=== PATIENT | female | born 1940 | race Caucasian/White ===

== ENCOUNTER 2020-04-06 12:06 | Emergency (ER) | payer OTHER ==
[~2020-04-06] VITALS: Ht 170.2 cm; Wt 68.0 kg
[2020-04-06 12:47] LABS: ABSOLUTE NEUTROPHILS 6.3 thou/uL (1.4-8.2); BASOPHILS 0.7 % (0.0-2.0); EOSINOPHILS 1.1 % (0.0-3.0); HEMATOCRIT 40.1 % (37.0-47.0); HEMOGLOBIN 13.4 gm/dL (12.0-15.0); LYMPHOCYTES 18.8 % (24.0-44.0); MCH 29.3 pg (26.0-34.0); MCHC 33.5 g/dL (28.0-37.0); MCV 87.5 fL (80.0-100.0); MONOCYTES 7.3 % (1.0-8.0); PLATELET COUNT 205 thou/uL (150-400); POLYS 72.1 % (36.0-66.0); RBC 4.58 mil/uL (4.20-5.00); RDW 12.6 % (10.5-14.5); WBC 8.7 thou/uL (4.0-11.0)
[2020-04-06 12:59] LABS: ANION GAP 15 mmol/L (7-16); BUN 26 mg/dL (7-18); CALCIUM 9.5 mg/dL (8.5-10.1); CHLORIDE 103 mmol/L (98-107); CO2 23 mmol/L (21-32); CREATININE 1.1 mg/dL (0.6-1.0); GLUCOSE 131 mg/dL (74-106); POTASSIUM 3.8 mmol/L (3.5-5.1); SODIUM 141 mmol/L (136-145)
[2020-04-06 13:02] LABS: ALBUMIN 3.9 g/dL (3.4-5.0); DIRECT BILIRUBIN < 0.1 mg/dL (<0.1-0.2); LIPASE 64 U/L (73-393); SGOT 17 U/L (15-37); SGPT 18 U/L (30-65); TOTAL BILIRUBIN 0.4 mg/dL (0.2-1.0); TOTAL PROTEIN 7.6 g/dL (6.4-8.2)
[2020-04-06 13:04] LABS: APTT 28.2 Seconds (24.5-32.8); INR 1.1; PROTIME 10.8 Seconds (9.3-11.4)
--- NOTE | 2020-04-06 13:09 | EKG ---
[facility] [place] [address] [place] [address] ELECTROCARDIOGRAM REPORT Name: SD MCGOWAN Room #: PRE [facility]..#: [id number] Admission: Attend Phys: Discharge: Date of : 38 Report #: [id number] THIS REPORT FOR: cc: Ck Birmingham MD [facility] ~ THIS REPORT FOR: //name// [facility] ED Test Date: 2020-04-06 Test Time: 12:53:27 Pat Name: SD MCGOWAN Department: Room: Gender: F [employer] Start: : 1940 Requested By: Justo Padilla Order Number: [id number] MD: Ck Birmingham Measurements Intervals English Rate: 64 P: 60 IL: 201 QRS: -67 QRSD: 155 T: 74 QT: 457 QTc: 472 Interpretive Statements Sinus rhythm Nonspecific IVCD with LAD Probable left ventricular hypertrophy Anterior Q waves, possibly due to LVH Baseline wander in lead(s) II,III,aVF No previous ECG available for comparison Electronically Signed On 04-06-2020 13:09:22 CDT by Ck Birmingham [email or web address] <ELECTRONICALLY SIGNED> By: Ck Birmingham MD, FACC 04/06/20 1309 1253 1253 Ck Birmingham MD, FAC /EPI
[2020-04-06] MEDS ORDERED: AUGMENTIN 875-1 EACH PO (14:05)
[2020-04-06] MEDS ORDERED: ULTRAM 50MG TAB50 MG PO (14:05)
[2020-04-06 14:16] VITALS: BP 134/74
== END 2020-04-06 14:16 | disposition home or self-care (01) ==
LOC: ER 12:06
PROVIDERS: Nurse Practitioner
DX: K57.32 Diverticulitis of large intestine without perforation or abscess without bleeding (principal); Z88.8 Allergy status to other drugs, medicaments and biological substances; Z88.5 Allergy status to narcotic agent

== ENCOUNTER → 2020-12-16 | Outpatient (CLI) | payer OTHER ==
[~2020-12-16] VITALS: Ht 170.2 cm; Wt 77.1 kg
[~2020-12-16] MED LIST: AUGMENTIN 875-1 EACH PO; CARVEDILOL25 MG PO; COZAAR 25 MG TA25 M1 PO; DIAZEPAM 10 MG10 M2 PO; FUROSEMIDE 40 M40 M1 PO; HYDROXYZINE HCL25 M2 PO; LIPITOR 40 MG T40 M1 PO; REMERON 30 MG T30 M1 PO; SERTRALINE HCL100 MG PO; SPIRONOLACTONE25 MG PO; ULTRAM 50MG TAB50 MG PO
--- NOTE | 2020-12-18 18:06 | PATH ---
[facility] [place] [address] [place] [address] PATHOLOGY RPT PROCEDURE Name: ALEJA MCGOWANAILEEN BEEBE Room #: REG MILAGROShai Marie.#: [id number] Admission: 12/16/20 Date of : 38 Discharge: Report #: [id number] Path Case #: [id number] [facility] Accession Number: [id number] . 01 Material submitted: . PART A: duodenum - DUODENAL BX R/O SPRUE PART B: gastrointestinal site - GASTRIC BX R/O H PYLORI PART C: colon - RANDOM COLON BIOPSY R/O MICROSCOPIC COLITIS PART D: rectum - RECTAL POLYP . 01 Clinician provided ICD-10: [id number] . 01 Clinical history: . EGD COLONOSCOPY ANEMIA, DIARRHEA, ABD PAIN GASTRITIS WITH GASTRIC ULCERS, LARGE HIATAL HERNIA SCHATZKI'S RING, DIVERTICULOSIS, RECTAL POLYP . 02 Diagnosis: A. Small bowel mucosa, duodenum R/O sprue, endoscopic biopsy: - No significant diagnostic abnormalities identified. - Negative for villous blunting or increase in intraepithelial lymphocytes. . B. Gastric mucosa, gastric R/O H. pylori, endoscopic biopsy: - Mild reactive gastropathy. - Negative for intestinal metaplasia or atrophy. - Negative for Helicobacter pylori (properly controlled immunohistochemical stain performed). . C. Large intestinal mucosa, random colon R/O microscopic colitis, endoscopic biopsy: - Mild active colitis, see comment. - Negative for dysplasia or malignancy. . D. Polyp, rectal polyp, endoscopic biopsy: - Tubular adenoma. - Negative for high-grade dysplasia. (IUV:se; 12/18/2020) S 12/18/2020 1331 Local . 02 Comment: Sections of the colonic mucosa designated "random colon" show focal cryptitis, and a moderately cellular lamina propria composed predominantly of lymphocytes and plasma cells and occasional eosinophils. Surface [address] [address] PATHOLOGY RPT PROCEDURE Name: SD MCGOWAN Room #: REG CLI [facility].#: [id number] Admission: 12/16/20 Date of : 38 Discharge: Report #: [id number] Path Case #: [id number] ulceration is not identified. There are no crypt abscesses, granulomas or viral inclusions. The process affects all the fragments with a similar intensity. Given the description, the differential diagnosis includes focal mild active colitis of self-limited etiology, infectious-type of etiology, acute diverticulitis, medication/drug induced colitis or early inflammatory bowel disease. Please correlate with clinical as well as endoscopic findings. (IUV:lillian; 12/18/2020) . 02 Electronically signed: . Inga Zarate MD, Pathologist NPI- [id number] . 01 Gross description: . A. The specimen is received in formalin, labeled "Bucky, Sd, duodenal biopsy rule out sprue" received as multiple fragments of soft nicholas tissue measuring up to 0.4 cm. Entirely submitted in A1. . B. The specimen is received in formalin, labeled "Bucky, Sd, gastric biopsy rule out H. pylori" received as multiple fragments of soft nicholas tissue measuring up to 0.4 cm. Entirely submitted in B1. . C. The specimen is received in formalin, labeled "Bucky, Sd, random colon biopsy rule out microscopic colitis" received as multiple fragments of soft nicholas tissue measuring up to 0.3 cm. Entirely submitted in C1. . D. The specimen is received in formalin, labeled "Bucky, Sd, rectal polyp" received as one fragment of soft nicholas tissue measuring up to 0.2 cm. Entirely submitted in D1. ([facility]; 12/17/2020) . LALA/LALA 12/18/2020 1327 Local . 02 Pathologist provided ICD-10: K31.9, K52.9, D12.8 . 02 CPT . 616162, 006231, 678658, 526973, [id number] Specimen Comment: A courtesy copy of this report has been sent to [phone] Specimen Comment: [phone] Specimen Comment: Report sent to / DR TAYLOR Performed at: 01 [facility] [address], [place] [address] MD Deng Hays MD Phone: [phone] Performed at: [facility] [address] [place] [address] PATHOLOGY RPT PROCEDURE Name: SD MCGOWAN Room #: REG CL MColeR.#: [id number] Admission: 12/16/20 Date of : 38 Discharge: Report #: [id number] Path Case #: [id number] [address] [place], [place] [id number] MD Inga Zarate MD Phone: [phone]
--- NOTE | 2020-12-21 15:04 | P ---
[facility] [place] [address] [address] [place] [address] PROCEDURE REPORT Name: SD MCGOWAN CONCEPCIÓN Room #: REG [facility].#: [id number] Admission: 12/16/20 Attend Phys: Pino Sexton Discharge: Date of : 39 Report #: [id number] THIS REPORT FOR: cc: Karyn Vo MD, Laurie Dawn MD McElhinney, Christian C. MD ~ DOC #: [id number] cc: MD Pino Monroe MD DATE OF SERVICE: 12/16/2020 PROCEDURE PERFORMED: Colonoscopy with biopsies. HISTORY OF PRESENT ILLNESS: The patient is an 80-year-old female with a history of chronic diarrhea, intermittent crampy abdominal pain, patient with a history of anemia seen in the office recently started on Levsin, which has been somewhat helpful. She does report bright red blood per rectum at times. Last colonoscopy approximately 5 years ago. No family history of colon cancer. On a bad day, is average in 5-10 bowel movements per day. She also has a previous history of diverticulitis, treated with antibiotics in March. Plan is for colonoscopy. DESCRIPTION OF PROCEDURE: The risks and benefits of the procedure were explained to the patient, those risks including but not limited to bleeding, perforation and the risk of sedation. She understood these risks and gave informed consent. Sedation was given using propofol per anesthesia. Next, a digital rectal exam showed external hemorrhoids, otherwise normal. Next, using a standard Olympus colonoscope, the scope was placed in the patient's anus and advanced under direct vision to the cecum. The overall prep was excellent. The cecum and ileocecal valve were normal in appearance. Terminal ileum was then intubated and normal in appearance. The ascending, transverse, and descending colon were normal. Random biopsies were obtained today to rule out the possibility of microscopic colitis. Multiple small diverticula were noted in the sigmoid colon. No evidence of inflammation, otherwise normal. In the rectum, there was a single 3 mm sessile polyp. This was removed with cold forceps, otherwise normal. No evidence of colitis on exam today. On retroflexion, small internal hemorrhoids were noted. Close examination of the anal canal showed small to medium sized external hemorrhoids. No evidence of bleeding at this time. No evidence of anal fissure. The scope was then withdrawn and the procedure terminated. The patient tolerated the procedure well. IMPRESSION: 1. Small rectal polyp. 2. Sigmoid diverticulosis without inflammation. [address] [address] PROCEDURE REPORT Name: SD MCGOWAN Room #: REG [facility].#: [id number] Admission: 12/16/20 Attend Phys: Pino Sexton Discharge: Date of : 38 Report #: [id number] 3. Internal and external hemorrhoids. 4. Otherwise, normal colonoscopy. RECOMMENDATIONS: 1. Await biopsy results. 2. Continue Levsin on a p.r.n. basis. 3. Recent bright red blood per rectum, likely secondary to external hemorrhoids. We will write a script for Analpram to be used on a p.r.n. basis. Thank you for allowing me to participate in her care. Pino Schneider MD [facility] <ELECTRONICALLY SIGNED> By: Pino Schneider MD 12/21/20 1504 0931 1948 Pino Schneider MD /nt
--- NOTE | 2020-12-21 15:04 | P ---
[facility] [place] [address] [address] PROCEDURE REPORT Name: SD MCGOWAN CONCEPCIÓN Room #: REG [facility].#: [id number] Admission: 12/16/20 Attend Phys: Pino Sexton Discharge: Date of : 38 Report #: [id number] THIS REPORT FOR: cc: Karyn Vo MD, Laurie Dawn MD McElhinney, Christian C. MD ~ DOC #: [id number] cc: MD Pino Monroe MD DATE OF SERVICE: 12/16/2020 PROCEDURE PERFORMED: Upper endoscopy with biopsies and esophageal dilation. HISTORY OF PRESENT ILLNESS: The patient is an 80-year-old female with a history of dysphagia also changes in her voice. She has dysphagia to both solids and liquids. No previous history of upper endoscopy apparently. She denies any acid reflux symptoms. She is not on any antacids. Her weight has been stable. She denies any nausea or vomiting. She also has a history of anemia and has undergone iron infusions recently. She also has been complaining of chronic diarrhea, blood in her stools and significant intermittent abdominal pain. Plan is for EGD and colonoscopy today. DESCRIPTION OF PROCEDURE: The risks and benefits of the procedure were explained to the patient, those risks including but not limited to bleeding, perforation and the risk of sedation. She understood these risks and gave informed consent. Sedation was given using propofol and fentanyl per anesthesia. Next, using a standard Olympus upper endoscope, the scope was placed in the patient's mouth and advanced under direct vision through the esophagus, stomach and into the second portion of the duodenum. The larynx was normal in appearance. The upper esophagus was normal. The mid and distal esophagus was tortuous, but otherwise normal. There was a mild Schatzki's ring noted at the GE junction. No evidence of esophagitis. Upon entering the stomach, a large hiatal hernia was noted. There was a diffuse gastritis noted throughout the body and antrum with several small clean white based ulcers ranging in size from 3-5 mm. There is no evidence of bleeding. Biopsies were obtained to rule out H. pylori. The pylorus was normal and patent. The duodenal bulb, first and second portion were normal. Random biopsies were also obtained to rule out the possibility of celiac sprue. The scope was then brought back up into the patient's stomach and a Savary guidewire was inserted through the scope, leaving the guidewire in place as the scope was then withdrawn. Next, a 51-Bruneian Savary dilation of the esophagus was performed without difficulty. The wire and dilator were removed. The scope was reintroduced into the patient's stomach. There was no evidence of mucosal tear after dilation. The scope was then withdrawn and the procedure terminated. The patient tolerated the procedure well. [address] [address] PROCEDURE REPORT Name: SD MCGOWAN Room #: REG [facility]#: [id number] Admission: 12/16/20 Attend Phys: Pino Sexton Discharge: Date of : 38 Report #: [id number] IMPRESSION: 1. Tortuous esophagus due to large hiatal hernia. 2. Mild Schatzki's ring, status post dilation. 3. Large hiatal hernia. 4. Diffuse moderate gastritis with several gastric ulcers. No evidence of active bleeding. 5. Otherwise, normal upper endoscopy. RECOMMENDATIONS: 1. Await biopsy results. 2. Recommend daily PPI therapy. 3. Observe the patient post-dilation. 4. We will proceed with colonoscopy next today. Thank you for allowing me to participate in her care. Pino Schneider MD CCM/SAT <ELECTRONICALLY SIGNED> By: Pino Schneider MD 12/21/20 1504 0858 1908 Pino Schneider MD /nt
== END | disposition home or self-care (01) ==
LOC: GI 08:08
PROVIDERS: ATTEND Specialist
DX: K52.9 Noninfective gastroenteritis and colitis, unspecified (principal); D12.8 Benign neoplasm of rectum; K57.30 Diverticulosis of large intestine without perforation or abscess without bleeding; K64.8 Other hemorrhoids; K64.4 Residual hemorrhoidal skin tags; K31.9 Disease of stomach and duodenum, unspecified; I10 Essential (primary) hypertension; R10.9 Unspecified abdominal pain; E78.5 Hyperlipidemia, unspecified; G43.909 Migraine, unspecified, not intractable, without status migrainosus; Z98.890 Other specified postprocedural states; Z79.899 Other long term (current) drug therapy; Z90.710 Acquired absence of both cervix and uterus; Z90.49 Acquired absence of other specified parts of digestive tract
CPT/HCPCS: 62110; 62900

== ENCOUNTER 2020-12-20 10:31 | Inpatient (IN) | payer OTHER ==
[~2020-12-20] VITALS: Ht 170.2 cm; Wt 78.0 kg
[2020-12-20 10:47] VITALS: BP 127/72
--- NOTE | 2020-12-20 11:32 | NUR ---
PT' SHIRT CUT OFF AT HER REQUEST.
[2020-12-20 11:56] LABS: ABSOLUTE NEUTROPHILS 3.7 thou/uL (1.4-8.2); BASOPHILS 0.6 % (0.0-2.0); HEMATOCRIT 30.6 % (37.0-47.0); HEMOGLOBIN 9.4 gm/dL (12.0-15.0); LYMPHOCYTES 28.2 % (24.0-44.0); MCHC 30.8 g/dL (28.0-37.0); MCV 71.5 fL (80.0-100.0); MONOCYTES 9.1 % (1.0-8.0); PLATELET COUNT 220 thou/uL (150-400); POLYS 61.1 % (36.0-66.0); RBC 4.28 mil/uL (4.20-5.00); RDW 17.8 % (10.5-14.5); WBC 6.1 thou/uL (4.0-11.0)
[2020-12-20 12:08] LABS: CALCIUM 9.2 mg/dL (8.5-10.1); CREATININE 1.1 mg/dL (0.6-1.0); POTASSIUM 3.6 mmol/L (3.5-5.1)
[2020-12-20 12:11] LABS: ALBUMIN 3.4 g/dL (3.4-5.0); TOTAL BILIRUBIN 0.2 mg/dL (0.2-1.0); TOTAL PROTEIN 7.3 g/dL (6.4-8.2)
[2020-12-20 12:41] VITALS: BP 127/72
[2020-12-20 13:01] VITALS: BP 129/74
[2020-12-20 13:20] VITALS: BP 136/63
[2020-12-20 13:51] LABS: ANISOCYTOSIS 1+; HYPOCHROMASIA 2+; MICROCYTES 1+; POLYCHROMASIA 1+
--- NOTE | 2020-12-20 15:38 | NUR ---
Pt transferred to unit from ED approx 1330. Pt c/o pain. Prn pain meds administered. Picture of rt upper extremity taken and placed in chart. Admission completed. Pt c/o itching. Provider notified and new orders noted. Family at bedside. Call light within reach. Fall precautions in place. Will continue to monitor.
[2020-12-20 19:15] VITALS: BP 91/36
--- NOTE | 2020-12-21 02:25 | NUR ---
ALERT AND ORIENTED. NORCO GIVEN FOR R HAND PAIN WITH RELIEF. LOW GRADE FEVER OF 99.5 WOUND DRSG DONE TO RFA. PT DENIES ANY GI/ DISCOMFORT. APPEARS TO BE SLEEPING WELL.
[2020-12-21 03:55] VITALS: BP 135/54
[2020-12-21 05:15] LABS: HEMATOCRIT 27.3 % (37.0-47.0); HEMOGLOBIN 8.7 gm/dL (12.0-15.0); MCHC 31.8 g/dL (28.0-37.0); MCV 72.2 fL (80.0-100.0); RBC 3.77 mil/uL (4.20-5.00); RDW 17.7 % (10.5-14.5); WBC 4.6 thou/uL (4.0-11.0)
[2020-12-21 05:34] LABS: CALCIUM 8.2 mg/dL (8.5-10.1); POTASSIUM 3.7 mmol/L (3.5-5.1)
[2020-12-21 08:11] VITALS: BP 111/47
--- NOTE | 2020-12-21 10:48 | NUR ---
Assumed care of pt at 0700. Pt a&ox4. C/o h/a and pain in right upper extremity. Prn pain meds administered. Dressing changed. Antibiotics infusing. Pt worked with physical and occupational therapy. Call light within reach. Fall precautions in place. Will continue to monitor.
--- NOTE | 2020-12-21 12:57 | NUR ---
ASSESSMENT: CM REVIEWED CHART AND SPOKE WITH PATIENT AT THE BEDSIDE. PT IS ALERT AND ORIENTED X4. PT WAS ADMITTED FROM HOME WHERE SHE LIVES IN A HOUSE WITH HER DAUGHTER. PT REPORTS HAVING ALOT OF STEPS AT THE HOME STATING ABOUT 12 UP WITH HANDRAILS AND 12 DOWN. PT REPORTS THAT HE IS NORMALLY FULLY INDEPENDENT WITH ADLS AND AMBULATION. PT REPORTS HAVING A CANE AND WALKER BUT NORMALLY DOES NOT USE THEM. PT REPORTS SHE HAS NOT HAD HOME HEALTH IN THE PAST OR BEEN TO A SNF. PT DID WELL WITH THERAPY AND PT SHOULD BE ABLE TO DISCHARGE HOME. PT WAS ADMITTED DUE CELLULITIS OF THE RIGHT LIMB. REMAINS ON IX ANBX AND CULTURES PENDING. CM WILL CONTINUE TO FOLLOW TO ASSIST NEEDED.
--- NOTE | 2020-12-21 16:23 | NUR ---
Assumed care at 1300 from SHARRI Beyer. Received awake on bed. Due medications given as prescribed, able to swallow meds w/o difficulty. On room air. Vital signs stable. On MS, not on telemetry; no complains and signs of chest pain, crushing sensation and heaviness. Assisted in ADLs. On regular diet- tolerating well; no nausea, no vomiting and no abdominal pain noted. Continent of bowel and bladder, able to go to the toilet with standby assist, gait belt. With laceration at R arm- dressing changed today as per previous nurse; C/D/I. Complained of pain, due PRN pain meds given as prescribed. With SL at L AC- on IV antibiotics. No fever noted this shift. To continue monitoring patient.
[2020-12-21 18:09] VITALS: BP 120/37
[2020-12-21 21:19] VITALS: BP 134/44
--- NOTE | 2020-12-22 00:37 | NUR ---
UPON SHIFT ASSESSMENT, PT AOX4. PT REPORTS 4/10 PAIN IN RIGHT ARM. PT RECEIVING PRN PO NORCO Q4HR WITH PRN PO APAP Q4HR AVAILABLE. DRESSING TO RIGHT FOREARM CLEAN, DRY AND INTACT, PT REQUESTING CHANGE OF KERLIX. PT DENIES SOB AT REST, NOTED TO HAVE SOB WITH EXERTION, ON ROOM AIR WHILE AWAKE, ON 2L O2 VIA NC AT HS. PT TOLERATING PO INTAKE OF FLUIDS AND REGULAR DIET WITHOUT ISSUE. PT WITHOUT NAUSEA OR EMESIS. PT AMBULATING WITH STANDBY TO X1 ASSIST TO BATHROOM, RESTING IN BED OTHERWISE. PT NOTED TO SHIFT INDEPENDENTLY WHILE IN BED. SENSATION INTACT, CAPILLARY REFILL LESS THAN 3SEC, PERIPHERAL PULSES PALPABLE IN ALL EXTREMITIES. PT ENCOURAGED TO NOTIFY STAFF FOR ALL NEEDS, CALL LIGHT WITHIN REACH, BED ALARM ON, BED LOCKED IN LOWEST POSITION, ROOM REMAINS NEAR NURSES STATION, FREQUENT MONITORING WILL CONTINUE.
[2020-12-22 04:03] VITALS: BP 140/51
[2020-12-22 06:05] LABS: HEMATOCRIT 26.2 % (37.0-47.0); HEMOGLOBIN 8.2 gm/dL (12.0-15.0); MCH 22.2 pg (26.0-34.0); MCHC 31.2 g/dL (28.0-37.0); MCV 71.3 fL (80.0-100.0); RBC 3.68 mil/uL (4.20-5.00); RDW 17.9 % (10.5-14.5); WBC 3.8 thou/uL (4.0-11.0)
[2020-12-22 06:09] LABS: % SATURATION 6 % (20-39); IRON 15 ug/dL (50-170); TIBC 263 ug/dL (250-450)
[2020-12-22 06:11] LABS: CALCIUM 8.2 mg/dL (8.5-10.1); CREATININE 0.9 mg/dL (0.6-1.0); POTASSIUM 3.9 mmol/L (3.5-5.1)
[2020-12-22 06:20] LABS: OBSERVED RETIC COUNT 1.62 % (0.6-2.6)
--- NOTE | 2020-12-22 08:10 | HC ---
[facility] [place] [address] [address] CONSULTATION Name: SD MCGOWAN CONCEPCIÓN Room #: 436-P ADM IN M.R.#: [id number] Admission: 12/20/20 Attend Phys: Percy Oliveira MD Discharge: Date of : 38 Report #: [id number] THIS REPORT FOR: cc: Karyn Vo MD, Laurie Dawn MD [place], Allen B. MD ~ DATE OF SERVICE: 12/20/2020 WOUND CARE CONSULTATION NOTE REASON FOR CONSULTATION: Three day old laceration of right arm without foreign body with cellulitis, pain, swelling and tenderness. HISTORY OF PRESENT ILLNESS: The patient is an 80-year-old woman who sustained a fall and fell against a dresser 3 days ago when prepping for colonoscopy. She did undergo the colonoscopy. With an open laceration of her right arm, her arm then became cellulitic swollen, red, more tender and painful. She is admitted for IV antibiotics and wound care. ALLERGIES: BUTORPHANOL, CIPRO, CODEINE. 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 HOME MEDICATIONS: Include Ultram, diazepam, Remeron, spironolactone, Lasix, Coreg, Cozaar, hydroxyzine, Lipitor, sertraline. PAST SURGICAL HISTORY: Includes appendectomy, hysterectomy, surgery on the left hand for bone spur, recent colonoscopy, cataract surgery, tonsillectomy and adenoidectomy, wisdom tooth extraction. PHYSICAL EXAMINATION: GENERAL: Shows a well-appearing elderly woman who is alert, pleasant, conversant. HEENT: Mucous membranes are moist. NECK: Supple. Sclerae are white. LUNGS: Respirations are unlabored. ABDOMEN: Soft. EXTREMITIES: No wounds of the lower extremities. Examination of the patient's right lateral arm shows a linear 8 cm laceration with a width of 0.6 cm and a depth of 0.4 cm. This has some surface slough and devitalized tissue. There is no apparent foreign body. There is exposed subcutaneous tissue only. Arm is swollen with some redness and is tender to touch. [address] [address] CONSULTATION Name: SD MCGOWAN CONCEPCIÓN Room #: 436-P [facility] .R.#: [id number] Admission: 12/20/20 Attend Phys: Percy Oliveira MD Discharge: Date of : 38 Report #: [id number] LABORATORY DATA: Sodium 142, potassium 3.6, creatinine 1.1. Albumin 3.4. White blood count 6.1. IMPRESSION: Laceration of right forearm without foreign body secondary cellulitis with pain, swelling and tenderness. PLAN: IV vancomycin, topical morphine, Silvadene applied twice daily, covered with Xeroform, Kerlix wrap. Keep arm elevated. Wound care team will follow. <ELECTRONICALLY SIGNED> By: Phillip Gramajo MD 12/22/20 0810 1728 0058 Phillip Gramajo MD /arabella
[2020-12-22 09:00] VITALS: BP 137/77
--- NOTE | 2020-12-22 11:35 | NUR ---
on-going assessment: CM REVIEWED CHART AND SPOKE WITH ATTENDING. PT CONTINUES TO PROGRESS TOWARDS DISCHARGE GOALS. PT IS DOING WELL WITH THERAPY AND SHOULD HAVE NO NEEDS AT THE TIME OF DISCHARGE. PER ATTENDING POSSIBLE DISCHARGE TOMORROW. CM WILL CONTINUE TO FOLLOW.
--- NOTE | 2020-12-22 12:27 | NUR ---
ASSUMED PT CARE THIS AM. PT IS ALERT AND ORIENTED X2,3 AND CONFUSED AT TIMES. PT HAS IV SITE ON L AC. LAST BM WAS TODAY. PT IS ON ROOM AIR. DID PT WOUND CARE WITH NS, SSD/MORPHINE CREAM, XEROFORM, KERLIX AND BEVERLY. PT TOLERATED MEDICATION AND DIET WELL. NO C/O OF NAUSEA AND VOMTING. PT ON THE BED, BED ON THE LOWEST POSITION, SIDE RAILS UP, CALL LIGHT WITHIN REACH. WILL CONTINUE TO MONITOR PT. FOLLOW POC.
[2020-12-22 16:55] VITALS: BP 138/80
[2020-12-22 19:40] VITALS: BP 142/64
--- NOTE | 2020-12-23 03:28 | NUR ---
ASSUMED CARE OF PT AT 1900. PT IS A/O X4 AND IS UP AD RERE. C/O PAIN TO RIGHT FA. PRN PAIN MEDICATION GIVEN DIRECTED. MEDICATIONS GIVEN PER SEP. VSS AFEBRILE. CALL LIGHT IS WITHIN REACH, PT CALLS OUT APPROPRIATELY FOR ASSISTANCE. IS PROGRESSING TOWARDS PLAN OF CARE DC GOALS.
[2020-12-23] MEDS ORDERED: BUTALBITAL-APA1 EAC1 PO (08:59)
--- NOTE | 2020-12-23 13:14 | NUR ---
ON-GOING ASSESSMENT: CM REVIEWED CHART AND SPOKE WITH ATTENDING. CM ALSO SPOKE WITH PT IN REGARDS TO HER CELLULITIS AND POSSIBLE HH FOR DRESSING CHANGES/WOUND CARE. 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 CM ATTEMPTED TO DISCUSS BENEFITS OF HH BUT PT CONTINUED TO DECLINE. CM NOTIFIED ATTENDING. PLANS ARE FOR PATIENT TO DISCHARGE HOME WHEN MEDICALLY STABLE. CM SPOKE WITH ATTENDING AND REPEAT LABS AND POSSIBLE DISCHARGE LATER TODAY.
[2020-12-23] MEDS ORDERED: IRON325 PO (17:10)
[2020-12-23] MEDS ORDERED: CEFDINIR300 MG PO (17:10)
[2020-12-23] MEDS ORDERED: LIPITOR 40 MG T40 M1 PO (17:11)
[2020-12-23] MEDS ORDERED: CARVEDILOL12.5 MG PO (17:11)
[2020-12-23] MEDS ORDERED: SSD CREAM 1% 5050 GM TOP (17:15)
[2020-12-23 17:43] VITALS: BP 153/92
[2020-12-23 18:15] VITALS: BP 153/92
--- NOTE | 2020-12-23 18:27 | NUR ---
RN went over all discharge education, all questions answered, IV out, and walked out with COMMUNICATIONS OFFICER discharged home
== END 2020-12-23 18:28 | disposition home or self-care (01) | DRG 603 ==
LOC: ER 10:31 → 4S 12:42 → EROBS 12:42 → 4S 13:03
PROVIDERS: Emergency Medicine; Nurse Practitioner Family; ADMIT Hospitalist; ATTEND Hospitalist
DX: L03.113 Cellulitis of right upper limb (principal); F32.9 Major depressive disorder, single episode, unspecified; G43.909 Migraine, unspecified, not intractable, without status migrainosus; I10 Essential (primary) hypertension; E78.5 Hyperlipidemia, unspecified; R10.9 Unspecified abdominal pain; F41.9 Anxiety disorder, unspecified; D50.9 Iron deficiency anemia, unspecified; R19.7 Diarrhea, unspecified; S51.811A Laceration without foreign body of right forearm, initial encounter; W18.39XA Other fall on same level, initial encounter; Y93.89 Activity, other specified; Y92.89 Other specified places as the place of occurrence of the external cause; Y99.8 Other external cause status; Z95.810 Presence of automatic (implantable) cardiac defibrillator; Z90.49 Acquired absence of other specified parts of digestive tract; Z90.710 Acquired absence of both cervix and uterus; Z98.42 Cataract extraction status, left eye; Z98.41 Cataract extraction status, right eye; Z79.899 Other long term (current) drug therapy; Z88.8 Allergy status to other drugs, medicaments and biological substances; Z88.5 Allergy status to narcotic agent; Z88.1 Allergy status to other antibiotic agents
CPT/HCPCS: 10102